=== PATIENT | female | born 1955 | race Two or more races ===

== ENCOUNTER 2017-05-23 21:26 | Emergency (ER) | payer MEDICAID, MEDICARE, OTHER ==
[~2017-05-23] VITALS: Ht 157.5 cm; Wt 73.5 kg
[~2017-05-23 21:26] MED LIST: BUSP15TA52 PO; CLON0.2T PO; ZOLP-158 PO
[2017-05-23] MEDS ORDERED: cloNIDine HCL 0.1 MG TAB ONE (23:21)
[2017-05-23 23:29] LABS: Basophils # (auto) 0.1 uL; Basophils % (auto) 1.2 % (0.0-2.0); Eosinophils # (auto) 0.8 uL; Eosinophils % (auto) 7.4 % (0.0-7.0); Hematocrit 43.6 % (36.0-46.0); Hemoglobin 14.6 g/dL (12.2-16.2); Lymphocytes # (auto) 4.2 uL; Mean Corpuscular Hemoglobin 29.8 pg (28.0-32.0); Mean Corpuscular Hgb Conc. 33.5 g/dL (32.0-36.0); Monocytes # (auto) 0.5 uL; Monocytes % (auto) 4.3 % (0.0-12.0); Neutrophils # (auto) 5.2 uL; Neutrophils % (auto) 48.1 % (37.0-80.0); Nucleated Red Blood Cells % 0.1 %; Platelet Count (auto) 299 10^3/uL (140-450); White Blood Cell 10.9 10^3/uL (4.4-10.8)
[2017-05-23] MEDS ORDERED: cloNIDine HCL 0.1 MG TAB PO ONE (23:30)
[2017-05-23 23:45] LABS: INR 0.9 (0.9-1.15); Partial Thromboplastin Time 24.3 sec (22.64-33.71); Prothrombin Time 9.8 sec (9.37-12.3)
[2017-05-23 23:56] LABS: Alanine Aminotransferase 23 U/L (13-56); Albumin 3.9 g/dL (3.4-5.0); Anion Gap 9 (5-15); Aspartate Aminotransferase 18 U/L (15-37); BUN/Creatinine Ratio 17.5; Blood Urea Nitrogen 14 mg/dL (7-18); Calcium 8.9 mg/dL (8.5-10.1); Carbon Dioxide 26 mmol/L (21-32); Chloride 110 mmol/L (98-107); GFR African American 93 mL/min; GFR Non-African American 77 mL/min; Glucose 86 mg/dL (74-106); Magnesium 2.4 mg/dL (1.6-2.6); Potassium 3.9 mmol/L (3.5-5.1); Sodium 145 mmol/L (136-145)
[2017-05-24 00:02] LABS: Alkaline Phosphatase 164 U/L (45-117); Bilirubin, Total 0.3 mg/dL (0.2-1.0); Total Protein 7.7 g/dL (6.4-8.2)
[2017-05-24] MEDS ORDERED: ALBUTEROL SULF 2.5 MG/0.5ML(0.5%) NEB SOLN NEB ONE (00:15)
[2017-05-24] MEDS ORDERED: methylPREDNISolone SOD SUCC 125 MG/2 ML VL IV ONE (00:15)
[2017-05-24] MEDS ORDERED: IPRATROPIUM BROM 0.5 MG/2.5ML INH SOL NEB ONE (00:15)
[2017-05-24 05:44] VITALS: BP 124/80
== END 2017-05-24 05:35 | disposition home or self-care (01) ==
LOC: ER 21:26
DX: J44.9 Chronic obstructive pulmonary disease, unspecified (principal); R51 Headache; J06.9 Acute upper respiratory infection, unspecified; M19.90 Unspecified osteoarthritis, unspecified site; I12.9 Hypertensive chronic kidney disease with stage 1 through stage 4 chronic kidney disease, or unspecified chronic kidney disease; N18.9 Chronic kidney disease, unspecified; E11.22 Type 2 diabetes mellitus with diabetic chronic kidney disease; E78.5 Hyperlipidemia, unspecified; F17.210 Nicotine dependence, cigarettes, uncomplicated
CPT/HCPCS: 36415; 70450; 71045; 80053; 83735; 83880; 84484; 85025; 85379; 85610; 85730; 93005; 96374; 99285; J2930; 94640

== ENCOUNTER 2017-09-09 20:17 | Emergency (ER) | payer MEDICAID, OTHER ==
[~2017-09-09] VITALS: Ht 160 cm; Wt 74.8 kg
[2017-09-09 21:19] LABS: Basophils # (auto) 0 uL; Basophils % (auto) 0.3 % (0.0-2.0); Eosinophils # (auto) 0.5 uL; Hematocrit 40.3 % (36.0-46.0); Hemoglobin 13.6 g/dL (12.2-16.2); Lymphocytes # (auto) 3.7 uL; Lymphocytes % (auto) 41.2 % (10.0-50.0); Mean Corpuscular Hemoglobin 29.3 pg (28.0-32.0); Mean Corpuscular Hgb Conc. 33.8 g/dL (32.0-36.0); Mean Corpuscular Volume 86.6 fL (80.0-100.0); Monocytes # (auto) 0.4 uL; Monocytes % (auto) 4.4 % (0.0-12.0); Neutrophils # (auto) 4.3 uL; Neutrophils % (auto) 48.1 % (37.0-80.0); Platelet Count (auto) 346 10^3/uL (140-450); Red Blood Cells 4.65 10^6/uL (4.0-5.20); Red Cell Distribution Width 13.1 % (11.8-14.3)
[2017-09-09 21:41] LABS: Alanine Aminotransferase 16 U/L (13-56); Albumin 3.6 g/dL (3.4-5.0); Alkaline Phosphatase 157 U/L (45-117); Anion Gap 11 (5-15); Aspartate Aminotransferase 11 U/L (15-37); BUN/Creatinine Ratio 16.3; Bilirubin, Total 0.4 mg/dL (0.2-1.0); Blood Urea Nitrogen 15 mg/dL (7-18); Calcium 9.3 mg/dL (8.5-10.1); Carbon Dioxide 19 mmol/L (21-32); Chloride 111 mmol/L (98-107); GFR African American 79 mL/min; GFR Non-African American 66 mL/min; Glucose 98 mg/dL (74-106); Potassium 3.5 mmol/L (3.5-5.1); Sodium 141 mmol/L (136-145); Total Protein 7.3 g/dL (6.4-8.2)
[2017-09-10] MEDS ORDERED: ONDANSETRON HCL 4 MG/2 ML VIAL IV ONE (01:45)
[2017-09-10] MEDS ORDERED: MORPHINE SULFATE 4 MG/ML SYR/VIAL IV ONE (01:45)
[2017-09-10 02:55] LABS: Partial Thromboplastin Time 25.2 sec (23.78-33.04); Prothrombin Time 10.7 sec (9.27-12.13)
[2017-09-10 04:15] VITALS: BP 143/64
== END 2017-09-10 05:19 | disposition home or self-care (01) ==
LOC: EDBD 20:17 → ER 20:29
DX: R07.9 Chest pain, unspecified (principal); M54.17 Radiculopathy, lumbosacral region; M47.9 Spondylosis, unspecified; R06.02 Shortness of breath; J44.9 Chronic obstructive pulmonary disease, unspecified; E11.9 Type 2 diabetes mellitus without complications; I10 Essential (primary) hypertension; E78.5 Hyperlipidemia, unspecified; M19.90 Unspecified osteoarthritis, unspecified site; Z86.718 Personal history of other venous thrombosis and embolism
CPT/HCPCS: 36415; 71045; 72131; 80053; 84484; 85025; 85379; 85610; 85730; 93005; 96374; 96375; 99285; J2270; J2405; J7030

== ENCOUNTER 2024-06-07 17:27 | Inpatient (IN) | payer OTHER ==
[~2024-06-07] VITALS: Ht 156.2 cm; Wt 76.0 kg
[~2024-06-07 17:27] MED LIST changes: -ZOLP-158 PO; +ZOLP5TAB PO
--- NOTE | 2024-06-07 17:42 | ED.PDOC ---
History of Present Illness HPI Comments 69-year-old female who comes in with chief complaint of right leg swelling x3 days. The patient denies any trauma. There has been no chest pain or shortness for breath. There has been no fever. The patient states that she has never had this swelling in the past. The patient denies any other complaints at this time Chief Complaint: Lower Extremity Time Seen by MD: 17:31 Primary Care Provider: UNKNOWN Reviewed Notes: Nurses Notes, Medications, Allergies (No allergies to medications) Allergies: Coded Allergies: NO KNOWN ALLERGIES (Unverified , 12/30/10) Home Meds Reported Medications Clonidine Hydrochloride (Clonidine Hcl) 0.2 Mg Tab, 0.2 MG PO BID 12/30/10 Buspirone Hcl (Buspar) 15 Mg Tab, 15 MG PO BID 12/30/10 Zolpidem Tartrate (Ambien) 5 Mg Tab, 5 MG PO HS 12/30/10 Information Source: Patient Mode of Arrival: Ambulatory Severity: Moderate Timing: Days (Symptoms started three days ago) Duration: Since onset Prehospital treatment: None Location: Right leg swelling with redness and mild tenderness Past Medical History PAST MEDICAL HISTORY: Anxiety, Arthritis, Asthma, CKF, COPD, Dementia, Depression, DM, High Lipids, HTN, Schizophrenia, UTI'S Surgical History (Other): Mass biopsy from right breast SCHEDULING CLERK History: No Pertinent SCHEDULING CLERK History Family History Family History: No family hx of Cancer, No family hx of DM, No family hx of HTN Social History Smoker: Quit Less Than 1 Year, Less Than 1 Pack/Day Alcohol: Denies ETOH Use Drugs: Denies Drug Use Lives In: Home Constitutional: denies: chills, diaphoresis, fatigue, fever, malaise, sweats, weakness, others EENTM: denies: blurred vision, double vision, ear bleeding, ear discharge, ear drainage, ear pain, ear ringing, eye pain, eye redness, hearing loss, mouth pain, mouth swelling, nasal discharge, nose bleeding, nose congestion, nose pain, photophobia, tearing, throat pain, throat swelling, voice changes, others Respiratory: denies: cough, hemoptysis, orthopnea, SOB at rest, shortness of breath, SOB with excertion, stridor, wheezing, others Cardiovascular: denies: chest pain, dizzy spells, diaphoresis, Dyspnea on exertion, edema, irregular heart beat, left arm pain, lightheadedness, palpitations, PND, syncope, others Gastrointestinal: denies: abdomen distended, abdominal pain, blood streaked bowels, constipated, diarrhea, dysphagia, difficulty swallowing, hematemesis, melena, nausea, poor appetite, poor fluid intake, rectal bleeding, rectal pain, vomiting, others Genitourinary: denies: abnormal vagina bleeding, burning, dyspareunia, dysuria, flank pain, frequency, hematuria, incontinence, pain, , vagina discharge, urgency, others Neurological: denies: dizziness, fainting, headache, left sided numbness, left sided weakness, numbness, paresthesia, pre-existing deficit, right sided numbness, right sided weakness, seizure, speech problems, tingling, tremors, weakness, others Musculoskeletal: reports: others (Right leg swelling and redness); denies: back pain, gout, joint pain, joint swelling, muscle pain, muscle stiffness, neck pain Integumetry: denies: bruises, change in color, change in hair/nails, dryness, laceration, lesions, lumps, rash, wounds, others Allergic/Immunocompromised: denies: Difficulty Healing, Frequent Infections, Hives, Itching, others Hematologic/Lymphatic: denies: anemia, blood clots, easy bleeding, easy bruising, swollen glands, others Endocrine: denies: excessive hunger, excessive sweating, excessive thirst, excessive urination, flushing, intolerance to cold, intolerance to heat, unexplained weight gain, unexplained weight loss, others Psychiatric: denies: anxiety, bipolar disorder, depression, hopeless, panic disorder, schizophrenia, sleepless, suicidal, others Physical Exam General Appearance: Mild Distress HEENT: Normal ENT Inspection, Pharynx Normal, TMs Normal Neck: Full Range of Motion, Non-Tender, Normal, Normal Inspection Respiratory: Chest Non-Tender, Lungs Clear, No Accessory Muscle Use, No Respiratory Distress, Normal Breath Sounds Cardiovascular: No Edema, No JVD, No Murmur, No Gallop, Normal Peripheral Pul ses, Regular Rate/Rhythm Breast Exam: Deferred Gastrointestinal: No Organomegaly, Non Tender, No Pulsatile Mass, Normal Bowel Sounds, Soft Genitalia: Deferred Pelvic: Deferred Rectal: Deferred Extremities: Calf tenderness, Inflammation, Normal capillary refill, Pedal edema (Right leg swelling) Musculoskeletal : Apperance: Normal Neurologic: Alert, staff antisubmarine officer II-XII nml as Tested, No Motor Deficits, Normal Affect, Normal Mood, No Sensory Deficits Cerebellar Function: Normal Reflexes: Normal Skin: Dry, Normal Color, Warm Lymphatic: No Adenopathy Was a procedure done? Was a procedure done?: No Differential Dx Considerations may include: DVT, strain, cellulitis X-Ray, Labs, Meds, VS Vital Signs Date Time Temp Pulse Resp B/P (MAP) Pulse Ox O2 Delivery O2 Flow Rate FiO2 06/07/24 17:39 98.0 95 17 129/75 (93) 96 98.0 Lab Test 06/07/24 17:41 Range/Units White Blood Count 7.2 4.4-10.8 10^3/uL Red Blood Count 4.06 4.0-5.20 10^6/uL Hemoglobin 11.6 L 12.2-16.2 g/dL Hematocrit 34.9 L 36.0-46.0 % Mean Corpuscular Volume 86.0 80.0-100.0 fL Mean Corpuscular Hemoglobin 28.5 28.0-32.0 pg Mean Corpuscular Hemoglobin Concent 33.2 32.0-36.0 g/dL Red Cell Distribution Width 13.8 11.8-14.3 % Platelet Count 357 140-450 10^3/uL Mean Platelet Volume 7.3 6.9-10.8 fL Neutrophils (%) (Auto) 46.6 37.0-80.0 % Lymphocytes (%) (Auto) 39.5 10.0-50.0 % Monocytes (%) (Auto) 4.8 0.0-12.0 % Eosinophils (%) (Auto) 8.6 H 0.0-7.0 % Basophils (%) (Auto) 0.5 0.0-2.0 % Neutrophils # (Auto) 3.4 1.6-8.6 10 ^3/uL Lymphocytes # (Auto) 2.9 0.4-5.4 10 ^3/uL Monocytes # (Auto) 0.3 0-1.3 10 ^3/uL Eosinophils # (Auto) 0.6 0-0.8 10 ^3/uL Basophils # (Auto) 0 0-0.2 10 ^3/uL Nucleated Red Blood Cells 0.1 % Erythrocyte Sedimentation Rate 60 H 0-20 mm/hr Sodium Level 141 136-145 mmol/L Potassium Level 4.0 3.5-5.1 mmol/L Chloride Level 106 98-107 mmol/L Carbon Dioxide Level 25 20-31 mmol/L Anion Gap 10 5-15 Blood Urea Nitrogen 19 9-23 mg/dL Creatinine 1.11 H 0.550-1.02 mg/dL Glomerular Filtration Rate Calc 53 >90 mL/min BUN/Creatinine Ratio 17.1 10.0-20.0 Serum Glucose 106 74-106 mg/dL Calcium Level 9.5 8.7-10.4 mg/dL Current Medications Medications (Trade) Dose Ordered Sig/Waldemar Route Start Time Stop Time Status Last Admin Enoxaparin Sodium (Lovenox) 80 mg ONCE ONCE SC 06/07/24 18:45 06/07/24 18:46 DC 06/07/24 19:37 Ultrasound of the right lower extremity shows: Impression: Right lower extremity deep vein thrombosis involving the common femoral vein, proximal greater saphenous vein, proximal, mid and distal superficial femoral veins, popliteal vein and trifurcation. The patient's CBC is within normal limits. The chemistry panel is within normal limits The creatinine is 1.11 For the findings on the ultrasound the patient was given Lovenox subQ Because of the extensive nature of the DVT we are going to admit the patient We did order a CT scan of the chest to rule out PE The patient was admitted Images Reviewed?: Images reviewed and evaluated by me Time of 1ST Reevaluation: 17:52 Reevaluation 1ST: Improved Patient Education/Counseling: Diagnosis, Treatment, Prognosis, Need For Follow Up Family Education/Counseling: No Family Present Departure 1 Departure Time of Disposition: 19:59 Impression: Primary Impression: DVT (deep venous thrombosis) Qualified Codes: I82.401 - Acute embolism and thrombosis of unspecified deep veins of right lower extremity Disposition: ADMITTED INPATIENT Admit to: Tele Condition: Fair Critical Care Note Critical Care Time?: No Stability Stability form required: Yes Unstable for transfer: Telemetry monitoring (Telemetry monitoring required), ED Physician Assesment (Clinical assesment) Heart Score Heart Score: Heart Score Response (Comments) Value History N/A 0 EKG N/A 0 Age N/A 0 Risk Factors N/A 0 Troponin N/A 0 Total 0 LANG GAXIOLA MD Jun 07, 2024 17:42
[2024-06-07 17:58] LABS: Basophils # (auto) 0 10 ^3/uL (0-0.2); Basophils % (auto) 0.5 % (0.0-2.0); Eosinophils # (auto) 0.6 10 ^3/uL (0-0.8); Eosinophils % (auto) 8.6 % (0.0-7.0); Hematocrit 34.9 % (36.0-46.0); Hemoglobin 11.6 g/dL (12.2-16.2); Lymphocytes # (auto) 2.9 10 ^3/uL (0.4-5.4); Lymphocytes % (auto) 39.5 % (10.0-50.0); Mean Corpuscular Hemoglobin 28.5 pg (28.0-32.0); Mean Corpuscular Hgb Conc. 33.2 g/dL (32.0-36.0); Monocytes # (auto) 0.3 10 ^3/uL (0-1.3); Monocytes % (auto) 4.8 % (0.0-12.0); Neutrophils # (auto) 3.4 10 ^3/uL (1.6-8.6); Neutrophils % (auto) 46.6 % (37.0-80.0); Nucleated Red Blood Cells % 0.1 %; Platelet Count (auto) 357 10^3/uL (140-450); Red Blood Cells 4.06 10^6/uL (4.0-5.20); Red Cell Distribution Width 13.8 % (11.8-14.3); White Blood Cell 7.2 10^3/uL (4.4-10.8)
[2024-06-07 18:06] LABS: Chloride 106 mmol/L (98-107); Sodium 141 mmol/L (136-145)
[2024-06-07 18:07] LABS: Anion Gap 10 (5-15); Calcium 9.5 mg/dL (8.7-10.4); Carbon Dioxide 25 mmol/L (20-31)
[2024-06-07 18:12] LABS: BUN/Creatinine Ratio 17.1 (10.0-20.0); Blood Urea Nitrogen 19 mg/dL (9-23)
[2024-06-07 18:17] LABS: Glucose 106 mg/dL (74-106)
--- NOTE | 2024-06-07 18:39 | DVH ---
Procedure: US RT Lower DVT Study Date and Requested Time: 06/07/2024 05:59 PM History: PAIN AND SWELLING Comparison: None Technique: Multiple high resolution israel-scale images with and without compression obtained of the [facility] lower extremity veins, including the common femoral vein, deep femoral vein, proximal mid and dis nay superficial femoral vein, and popliteal vein. Additional limited images of the greater saphenous vein also obtained. Augmentation performed as indicated. Color and spectral doppler flow images obtai benjy as indicated. Findings: There is incompressibility of the right lower extremity veins extending from the common femoral vein through the trifurcation distally. The posterior tibial vein is compressible. Impression: Right lower extremity deep vein thrombosis involving the common femoral vein, proximal greater saphen ous vein, proximal, mid and distal superficial femoral veins, popliteal vein and trifurcation. Dancer Or Choreographer documented notification of MD Mely Cabrera
[2024-06-07 19:26] LABS: Erythrocyte Sedimentation Rate 60 mm/hr (0-20)
[2024-06-07] MEDS: ENOXAPARIN SOD 100 MG/1 ML SYRINGE SC ONE (19:37)
[2024-06-07] MEDS ORDERED: HYDROcodone-ACET 5/325MG TAB PO PRN (19:45)
[2024-06-07] MEDS ORDERED: ACETAMINOPHEN 325 MG TAB PO PRN (19:45)
[2024-06-07] MEDS ORDERED: ONDANSETRON HCL 4 MG/2 ML VIAL IV PRN (19:45)
--- NOTE | 2024-06-07 21:01 | DVH ---
PROCEDURE: CT CT ANGIO CHEST CONTRAST 06/07/2024 08:26 PM INDICATION: DVT with possible PE COMPARISON: None TECHNIQUE: Coverage: Thorax IV contrast: Administered Phases: Arterial Multiplanar 3-D Maximum Intensity Projection images (MIP) reconstructions were created by the technalfredo grubbs in the coronal and sagittal planes as part of the CT angiography protocol. Adverse events: None Medication laboratory values were reviewed to verify the patient meets criteria for contrast administ ration. All CT scans at this medical facility are performed using dose modulation techniques as appropriate t o a performed exam including the following: Automated exposure control was utilized; adjustment of th e MA and/or KV according to patient size; and use of iterative reconstruction technique. Radiation dose: CTDIvol 11.3 mGy, DLP 385 mGy*cm. FINDINGS: Cardiovascular: No evidence of acute or chronic pulmonary emboli identified. Aorta is normal in calib er. Diffuse atherosclerotic disease of the aorta noted with extensive mixed plaque formation. Ulcera sherry plaques are seen throughout the aortic arch and descending aorta. Coronary artery calcification noted. The heart is normal in size. Lungs: No focal consolidation. No pleural effusion. No pneumothorax. The airways are patent. Thyroid: Goiter. No discrete nodule is identified on CT. Esophagus: Unremarkable. Lymphatics: No hilar or mediastinal lymphadenopathy. Bones/soft tissues: No acute abnormality. Multilevel degenerative changes of the thoracic spine are n oted. Upper abdomen: No acute abnormality. Colonic diverticula without diverticulitis. Other: None. IMPRESSION: 1. No evidence of acute pulmonary emboli. 2. Extensive mixed plaque formation of the aorta with ulcerated plaques noted.
--- NOTE | 2024-06-07 21:17 | DVHHP2 ---
History of Present Illness Reason for Visit: Right leg swelling History of Present Illness 69-year-old female presents for evaluation of right leg swelling. Patient reports noticing swelling to her right lower extremity over the past three days. Denies any trauma to the area. No chest pain or shortness for breath. Denies any fever or chills. No other acute complaints reported. Past Medical History Chronic kidney disease, COPD, asthma, dementia, depression, diabetes mellitus, dyslipidemia, hypertension, schizophrenia Past Surgical History Right breast biopsy Family History Noncontributory Smoke: <1 pack per day ALCOHOL: none Drugs: None Lives: with Family Review of Systems Review of Systems Review of systems are currently negative otherwise addressed in HPI. Allergies: Coded Allergies: NO KNOWN ALLERGIES (Unverified , 12/30/10) Medications Current Medications Medications Dose Ordered Sig/Waldemar Route Start Time Stop Time Status Last Admin Dose Admin Enoxaparin Sodium 80 mg Q12HR SC 06/08/24 10:00 Clonidine HCl 0.2 mg BID PO 06/07/24 22:00 Buspirone HCl 15 mg Q12HR PO 06/07/24 22:00 Acetaminophen/ Hydrocodone Bitart 1 tab Q4HP PRN PO 06/07/24 19:45 Ondansetron HCl 4 mg Q4HP PRN IV 06/07/24 19:45 Acetaminophen 650 mg Q6HP PRN PO 06/07/24 19:45 Exam Vital Signs Vital Signs Date Time Temp Pulse Resp B/P (MAP) Pulse Ox O2 Delivery O2 Flow Rate FiO2 06/07/24 17:39 98.0 95 17 129/75 (93) 96 98.0 Exam Gen: 69-year-old female in mild distress Skin: Warm, dry, normal color and texture, no rash. HEENT: Normocephalic atraumatic, mucous membranes moist and pink. Neck: Cervical and supraclavicular nodes normal without enlargement, trachea is midline, thyroid gland is normal without masses. Pulmonary: Clear to auscultation and percussion bilaterally. Cardiac: Regular rate and rhythm. No murmur Abdomen: Soft, nontender, nondistended, bowel sounds present all 4 quadrants, no guarding, no rigidity, no organomegaly. Extremities: No cyanosis, clubbing, right lower extremity erythema with swelling Neuro: Cranial nerves II through XII grossly intact, normal affect and speech, no focal motor deficits. Labs/Xrays ORDERING PHYSICIAN: LANG GAXIOLA MD PROCEDURE(s): RLDVT - RT Lower DVT REASON: PAIN AND SWELLING ORDER NUMBER(s): [id number], ACCESSION NUMBER(s): [id number] Procedure: US RT Lower DVT Study Date and Requested Time: 06/07/2024 05:59 PM History: PAIN AND SWELLING Comparison: None Technique: Multiple high resolution israel-scale images with and without compression obtained of the right lower extremity veins, including the common femoral vein, deep femoral vein, proximal mid and distal superficial femoral vein, and popliteal vein. Additional limited images of the greater saphenous vein also obtained. Augmentation performed as indicated. Color and spectral doppler flow images obtained as indicated. Findings: There is incompressibility of the right lower extremity veins extending from the common femoral vein through the trifurcation distally. The posterior tibial vein is compressible. Impression: Right lower extremity deep vein thrombosis involving the common femoral vein, proximal greater saphenous vein, proximal, mid and distal superficial femoral veins, popliteal vein and trifurcation. Bearing Ring Assembler documented notification of MD Mely Cabrera RING PHYSICIAN: LANG GAXIOLA MD PROCEDURE(s): CTACH - CT ANGIO CHEST CONTRAST REASON: DVT with possible PE ORDER NUMBER(s): [id number], ACCESSION NUMBER(s): [id number] PROCEDURE: CT CT ANGIO CHEST CONTRAST 06/07/2024 08:26 PM INDICATION: DVT with possible PE COMPARISON: None TECHNIQUE: Coverage: Thorax IV contrast: Administered Phases: Arterial Multiplanar 3-D Maximum Intensity Projection images (MIP) reconstructions were created by the technologist in the coronal and sagittal planes as part of the CT angiography protocol. Adverse events: None Medication laboratory values were reviewed to verify the patient meets criteria for contrast administration. All CT scans at this medical facility are performed using dose modulation techniques as appropriate to a performed exam including the following: Automated exposure control was utilized; adjustment of the MA and/or KV according to patient size; and use of iterative reconstruction technique. Radiation dose: CTDIvol 11.3 mGy, DLP 385 mGy*cm. FINDINGS: Cardiovascular: No evidence of acute or chronic pulmonary emboli identified. Aorta is normal in caliber. Diffuse atherosclerotic disease of the aorta noted with extensive mixed plaque formation. Ulcerated plaques are seen throughout the aortic arch and descending aorta. Coronary artery calcification noted. The heart is normal in size. Lungs: No focal consolidation. No pleural effusion. No pneumothorax. The airways are patent. Thyroid: Goiter. No discrete nodule is identified on CT. Esophagus: Unremarkable. Lymphatics: No hilar or mediastinal lymphadenopathy. Bones/soft tissues: No acute abnormality. Multilevel degenerative changes of the thoracic spine are noted. Upper abdomen: No acute abnormality. Colonic diverticula without diverticulitis. Other: None. IMPRESSION: 1. No evidence of acute pulmonary emboli. 2. Extensive mixed plaque formation of the aorta with ulcerated plaques noted. Labs Test 06/07/24 17:41 Range/Units White Blood Count 7.2 4.4-10.8 10^3/uL Red Blood Count 4.06 4.0-5.20 10^6/uL Hemoglobin 11.6 L 12.2-16.2 g/dL Hematocrit 34.9 L 36.0-46.0 % Mean Corpuscular Volume 86.0 80.0-100.0 fL Mean Corpuscular Hemoglobin 28.5 28.0-32.0 pg Mean Corpuscular Hemoglobin Concent 33.2 32.0-36.0 g/dL Red Cell Distribution Width 13.8 11.8-14.3 % Platelet Count 357 140-450 10^3/uL Mean Platelet Volume 7.3 6.9-10.8 fL Neutrophils (%) (Auto) 46.6 37.0-80.0 % Lymphocytes (%) (Auto) 39.5 10.0-50.0 % Monocytes (%) (Auto) 4.8 0.0-12.0 % Eosinophils (%) (Auto) 8.6 H 0.0-7.0 % Basophils (%) (Auto) 0.5 0.0-2.0 % Neutrophils # (Auto) 3.4 1.6-8.6 10 ^3/uL Lymphocytes # (Auto) 2.9 0.4-5.4 10 ^3/uL Monocytes # (Auto) 0.3 0-1.3 10 ^3/uL Eosinophils # (Auto) 0.6 0-0.8 10 ^3/uL Basophils # (Auto) 0 0-0.2 10 ^3/uL Nucleated Red Blood Cells 0.1 % Erythrocyte Sedimentation Rate 60 H 0-20 mm/hr Sodium Level 141 136-145 mmol/L Potassium Level 4.0 3.5-5.1 mmol/L Chloride Level 106 98-107 mmol/L Carbon Dioxide Level 25 20-31 mmol/L Anion Gap 10 5-15 Blood Urea Nitrogen 19 9-23 mg/dL Creatinine 1.11 H 0.550-1.02 mg/dL Glomerular Filtration Rate Calc 53 >90 mL/min BUN/Creatinine Ratio 17.1 10.0-20.0 Serum Glucose 106 74-106 mg/dL Calcium Level 9.5 8.7-10.4 mg/dL Assessment/Plan Assessment/Plan Assessment Right lower extremity DVT Diabetes mellitus Hypertension Acute kidney injury Plan Admit the patient to [facility] to the hospitalist Delmer b.i.d. Resume home medications Pain management Continue treatment per orders. Plan discussed with: Patient My Orders Orders - JESÚS HERNANDES Procedure Category Date Status Time Clonidine Hcl Tablet PHA 06/07/24 In Process (Catapres Tablet) 22:00 Buspirone Hcl Tablet PHA 06/07/24 In Process (Buspar Tablet) 22:00 Basic Metabolic Panel LAB 06/08/24 Verified 04:00 PTPTT LAB 06/08/24 Verified 04:00 Admit ADMIT 06/07/24 Transmitted 19:45 Hydrocodone-Acet PHA 06/07/24 In Process 5/325mg Tab ([place] 19:45 Ondansetron Hcl PHA 06/07/24 In Process (Zofran) 19:45 Cardiac DIET 06/08/24 Transmitted Diet-2gna,Lofat,Lochol Breakfast Condition: Stable LUCILLE 06/07/24 In Process 19:45 Acetaminophen Tablet PHA 06/07/24 In Process (Tylenol Tablet) 19:45 Bedrest With Bathroom LUCILLE 06/07/24 In Process Privileg 19:45 Enoxaparin Sodium PHA 06/08/24 In Process (Lovenox) 10:00 Date of Service: Jun 07, 2024 Billing Provider: JESÚS HERNANDES Common Visit Codes: [id number] INP/OBS CARE (HIGH) JESÚS HERNANDES AGACN Jun 07, 2024 21:17
[2024-06-08] MEDS: cloNIDine HCL 0.1 MG TAB PO SCH (03:59)
[2024-06-08] MEDS: busPIRone HCL 10 MG TAB PO SCH (04:01)
[2024-06-08] MEDS: IOHEXOL 350 MG/ML 100ML IJ ONE (04:17)
[2024-06-08 04:50] VITALS: PULSE 88; RESP 16; O2SAT 98
[2024-06-08 05:15] LABS: Chloride 107 mmol/L (98-107); Potassium 4.1 mmol/L (3.5-5.1); Sodium 139 mmol/L (136-145)
[2024-06-08 05:16] LABS: Anion Gap 7 (5-15); Calcium 9.8 mg/dL (8.7-10.4); Carbon Dioxide 25 mmol/L (20-31)
[2024-06-08 05:18] LABS: INR 1.02 (0.9-1.15); Partial Thromboplastin Time 30.8 SEC (24.5-34.5); Prothrombin Time 10.8 sec (9.3-11.8)
[2024-06-08 05:21] LABS: BUN/Creatinine Ratio 15.6 (10.0-20.0); Blood Urea Nitrogen 17 mg/dL (9-23)
[2024-06-08 05:42] LABS: Glucose 118 mg/dL (74-106)
[2024-06-08 09:54] VITALS: BP 104/84; PULSE 79; RESP 16; TEMP 97.4; O2SAT 92
[2024-06-08] MEDS: ENOXAPARIN SOD 80 MG/0.8ML SYRINGE SC SCH (11:04)
[2024-06-08] MEDS ORDERED: APIX5TAB4 PO (13:08)
--- NOTE | 2024-06-08 13:13 | DVHDS2 ---
Discharge Summary Date of Admission Jun 07, 2024 at 19:45 Date of Discharge: Jun 08, 2024 Labs/Diagnostic Data: Laboratory Results Test 06/08/24 04:27 06/07/24 17:41 Prothrombin Time 10.8 sec (9.3-11.8) Prothrombin Time INR 1.02 (0.9-1.15) Activated Partial Thromboplast Time 30.8 SEC (24.5-34.5) Sodium Level 139 mmol/L (136-145) Potassium Level 4.1 mmol/L (3.5-5.1) Chloride Level 107 mmol/L (98-107) Carbon Dioxide Level 25 mmol/L (20-31) Anion Gap 7 (5-15) Blood Urea Nitrogen 17 mg/dL (9-23) Creatinine 1.09 mg/dL (0.550-1.02) Glomerular Filtration Rate Calc 55 mL/min (>90) BUN/Creatinine Ratio 15.6 (10.0-20.0) Serum Glucose 118 mg/dL (74-106) Calcium Level 9.8 mg/dL (8.7-10.4) White Blood Count 7.2 10^3/uL (4.4-10.8) Red Blood Count 4.06 10^6/uL (4.0-5.20) Hemoglobin 11.6 g/dL (12.2-16.2) Hematocrit 34.9 % (36.0-46.0) Mean Corpuscular Volume 86.0 fL (80.0-100.0) Mean Corpuscular Hemoglobin 28.5 pg (28.0-32.0) Mean Corpuscular Hemoglobin Concent 33.2 g/dL (32.0-36.0) Red Cell Distribution Width 13.8 % (11.8-14.3) Platelet Count 357 10^3/uL (140-450) Mean Platelet Volume 7.3 fL (6.9-10.8) Neutrophils (%) (Auto) 46.6 % (37.0-80.0) Lymphocytes (%) (Auto) 39.5 % (10.0-50.0) Monocytes (%) (Auto) 4.8 % (0.0-12.0) Eosinophils (%) (Auto) 8.6 % (0.0-7.0) Basophils (%) (Auto) 0.5 % (0.0-2.0) Neutrophils # (Auto) 3.4 10 ^3/uL (1.6-8.6) Lymphocytes # (Auto) 2.9 10 ^3/uL (0.4-5.4) Monocytes # (Auto) 0.3 10 ^3/uL (0-1.3) Eosinophils # (Auto) 0.6 10 ^3/uL (0-0.8) Basophils # (Auto) 0 10 ^3/uL (0-0.2) Nucleated Red Blood Cells 0.1 % Erythrocyte Sedimentation Rate 60 mm/hr (0-20) Other Laboratory Tests 06/08/24 04:27 06/07/24 17:41 Brief Hx & Hospital Course: Final diagnoses: Right lower extremity DVT Underlying dementia History of COPD History of hypertension History of type 2 diabetes History of chronic kidney disease 69-year-old female comes with a chief complaint of right leg swelling Ultrasound showed DVT According to her daughter the patient is sedentary at home, she uses a walker for ambulation No falls or history of any trauma Vital signs are stable She is asymptomatic otherwise She can be discharged home on Eliquis starter pack 10 mg twice a day for 7 days and then 5 mg twice a day Follow up with her primary care physician as soon as possible According to her the her she does not take any other medications at home Condition at Discharge: Stable Final Diagnosis/Problems List RLE DVT Discharge Disposition: Home SNF Discharge Will this Physician continue t: No Discharge Instruct/Medications Diet: Regular Activity: No Restrictions, As Tolerated Follow Up/Referral: PCP JERO Medications: Eliquis 10 mg bid x 7 days then 5 mg bid Discharge Statement: "Patient was advised to return to the ER or call 911 if any headaches, dizziness, shortness of breath, chest pain, abdominal pain, bleeding, fevers, or worsening of medical condition. Patient was counseled about treatment plan, medications, possible side effects, patientverbalized understanding. All questions were answered to the best of my ability. This discharge took greater then 30 minutes in planning, reviewing documentation, counseling the patient, and discussing with other team members." ASSESSMENT ASSESSMENT Assessment RLE DVT Date of Service: Jun 08, 2024 Billing Provider: PALAK PERRY MD Common Visit Codes: NOT BILLABLE PALAK PERRY MD Jun 08, 2024 13:13
== END 2024-06-08 14:20 | disposition home or self-care (01) | DRG 301 ==
LOC: ER 17:40 → OVERFLOW 19:45
PROVIDERS: ADMIT Internal Medicine Geriatric Medicine; ATTEND Internal Medicine Geriatric Medicine
DX: I82.401 Acute embolism and thrombosis of unspecified deep veins of right lower extremity (principal); F03.90 Unspecified dementia, unspecified severity, without behavioral disturbance, psychotic disturbance, mood disturbance, and anxiety; I10 Essential (primary) hypertension; E11.22 Type 2 diabetes mellitus with diabetic chronic kidney disease; N18.9 Chronic kidney disease, unspecified; J44.9 Chronic obstructive pulmonary disease, unspecified; Z87.891 Personal history of nicotine dependence; Z79.899 Other long term (current) drug therapy
CPT/HCPCS: 36415; 71275; 80048; 85025; 85610; 85652; 85730; 93971; 96372; G0378